=== PATIENT | male | born 1970 | race American Indian/Alaskan Native ===

== ENCOUNTER 2016-11-26 10:58 | Observation (INO) | payer SELFPAY ==
[2016-11-26 10:58] VITALS: BMI 37.1
[2016-11-26 12:09] LABS: BASO # 0.1 K/uL (0.0-0.2); BASO % 1.9 % (0.0-2.0); EOS # 0.2 K/uL (0.0-0.7); EOS % 5.6 % (0.0-4.0); HEMATOCRIT 39.4 % (35.0-51.0); LYMPH # 1.4 K/uL (1.0-4.3); LYMPH % 31.7 % (20.0-40.0); MEAN CORPUSCULAR HEMOGLOBIN 19.8 pg (27.0-31.0); MEAN CORPUSCULAR HGB CONC 31.4 g/dL (33.0-37.0); MEAN PLATELET VOLUME 10.9 fl (7.2-11.7); MONO # 0.4 K/uL (0.0-0.8); MONO % 8.5 % (0.0-10.0); NEUT # 2.3 K/uL (1.8-7.0); NEUT % 52.3 % (50.0-75.0); NRBC % 0.3 % (0.0-0.0); RED CELL DISTRIBUTION WIDTH 15.8 % (11.5-14.5); WHITE BLOOD COUNT 4.4 K/uL (4.8-10.8)
[2016-11-26 12:15] LABS: PARTIAL THROMBOPLASTIN TIME 30.9 Seconds (25.6-37.1)
--- NOTE | 2016-11-26 12:32 | ED PDOC ---
HPI: Chest Pain Time Seen by Provider: 11/26/16 11:16 Chief Complaint (Nursing): Chest Pain Chief Complaint (Provider): Chest pain History Per: Patient History/Exam Limitations: no limitations Onset/Duration Of Symptoms: Other (week) Additional Complaint(s): Patient is a 46 y/o male with a past medical history of hypertension, diabetes, and obesity, presenting to the emergency department for intermittent left sided chest pain radiating to the left shoulder x1 week. Denies dizziness, shortness of breath, syncope, or other complaints. Of note, patient was referred to the emergency department by PCP Dr. Cuba. Past Medical History Reviewed: Historical Data, Nursing Documentation, Vital Signs Vital Signs: Last Vital Signs Temp 98.2 F 11/27/16 08:53 Pulse 72 11/27/16 09:48 Resp 18 11/27/16 07:55 BP 142/87 11/27/16 09:48 Pulse Ox 96 11/27/16 07:55 - Medical History PMH: Diabetes, HTN, Sleep Apnea Denies: Chronic Kidney Disease - Surgical History Surgical History: No Surg Hx - Family History Family History: States: Unknown Family Hx - Social History Current smoker - smoking cessation education provided: No Ex-Smoker (has not smoked in the last 12 months): No Alcohol: None Drugs: Denies - Home Medications Home Medications: Ambulatory Orders Medication Instructions Recorded GlipiZIDE [Glucotrol] 10 mg PO BID #60 tab 06/22/15 Aspirin [Aspirin Chewable] 81 mg PO DAILY #30 11/27/16 Metoprolol Tartrate [Lopressor] 50 mg PO DAILY #30 tab 11/27/16 Simvastatin [Zocor] 20 mg PO DAILY #30 tablet 11/27/16 - Allergies Allergies/Adverse Reactions: Allergies Allergy/AdvReac Type Severity Reaction Status Date / Time No Known Allergies Allergy Verified 06/20/15 00:26 Review of Systems ROS Statement: Except As Marked, All Systems Reviewed And Found Negative Cardiovascular: Positive for: Chest Pain (left-sided, intermittent, radiating to left shoulder) Respiratory: Negative for: Shortness of Breath Musculoskeletal: Positive for: Shoulder Pain (left) Neurological: Negative for: Headache, Dizziness, Other (syncope) Physical Exam - Reviewed Nursing Documentation Reviewed: Yes Vital Signs Reviewed: Yes - Physical Exam Appears: Positive for: Non-toxic, No Acute Distress Head Exam: Positive for: ATRAUMATIC, NORMAL INSPECTION, NORMOCEPHALIC Skin: Positive for: Normal Color, Warm, Dry Eye Exam: Positive for: Normal appearance Neck: Positive for: Normal, Painless ROM, Supple Cardiovascular/Chest: Positive for: Regular Rate, Rhythm. Negative for: Murmur Respiratory: Positive for: Normal Breath Sounds. Negative for: Accessory Muscle Use, Respiratory Distress Gastrointestinal/Abdominal: Positive for: Normal Exam, Soft. Negative for: Tenderness Extremity: Positive for: Normal ROM. Negative for: Pedal Edema Neurologic/Psych: Positive for: Alert, Oriented (x3) - Laboratory Results Result Diagrams: 11/26/16 11:58 11/26/16 11:58 - ECG ECG: Positive for: Interpreted By Me ECG Rhythm: Positive for: Normal QRS, Normal ST Segment, Sinus Rhythm. Negative for: ST/T Changes Rate: 70 O2 Sat by Pulse Oximetry: 100 (RA) Pulse Ox Interpretation: Normal Medical Decision Making Medical Decision Making: Time: 11:38 Initial impression: Chest pain Initial plan: Labs EKG Chest X-ray Lopressor 25 mg PO Nitrostat 04. Mg SL Reevaluation Plan is to provide workup for acute coronary artery syndrome given patient's risk factors of high blood pressure, diabetes, and obesity. 12:30 Chest X-Ray reviewed. Findings noted as follows: FINDINGS: LUNGS: No active pulmonary disease. PLEURA: No significant pleural effusion identified. No pneumothorax apparent. CARDIOVASCULAR: No radiographic findings to suggest acute or significant cardiovascular disease. OSSEOUS STRUCTURES: No significant abnormalities. VISUALIZED UPPER ABDOMEN: Normal. OTHER FINDINGS: None. IMPRESSION: No active disease. No significant interval change compared to the prior examination(s). given risk factors of obesity, DM, HTN, will admit Obs Dr Cuba for r/o ACS. ASA, metoprolol initiated. Scribe Attestation: Documented by Tressa Silva, acting as a scribe for Jamil Chang DO. Provider Scribe Attestation: All medical record entries made by the Scribe were at my direction and personally dictated by me. I have reviewed the chart and agree that the record accurately reflects my personal performance of the history, physical exam, medical decision making, and the department course for this patient. I have also personally directed, reviewed, and agree with the discharge instructions and disposition. Disposition - Clinical Impression Clinical Impression: Acute chest pain - Patient ED Disposition Is Patient to be Admitted: Yes Counseled Patient/Family Regarding: Studies Performed, Diagnosis, Need For Followup - Disposition Disposition Time: 13:15 Condition: GOOD - Pt Status Changed To: Hospital Disposition Of: Observation
--- NOTE | 2016-11-26 12:32 | RAD ---
HISTORY: chest pain/ r/o infiltrate COMPARISON: 06/20/2015. TECHNIQUE: Chest PA and lateral FINDINGS: LUNGS: No active pulmonary disease. PLEURA: No significant pleural effusion identified. No pneumothorax apparent. CARDIOVASCULAR: No radiographic findings to suggest acute or significant cardiovascular disease. OSSEOUS STRUCTURES: No significant abnormalities. VISUALIZED UPPER ABDOMEN: Normal. OTHER FINDINGS: None. IMPRESSION: No active disease. No significant interval change compared to the prior examination(s).
[2016-11-26 12:51] LABS: GLUCOSE,RANDOM 250 mg/dL (75-110)
[2016-11-26 12:52] LABS: ALB/GLOB RATIO 0.9 (1.0-2.1); ALT/SGPT 35 U/L (21-72); AST/SGOT 45 U/L (17-59); BLOOD UREA NITROGEN 14 mg/dl (9-20); CALCIUM 8.7 mg/dL (8.4-10.2); CARBON DIOXIDE 24 mmol/L (22-30); CHLORIDE 100 mmol/L (98-107); GFR AFRICAN-AMERICAN > 60; POTASSIUM 4.7 MMOL/L (3.6-5.0); SODIUM 135 mmol/l (132-148); TOTAL PROTEIN 8.1 G/DL (6.3-8.2)
[2016-11-26 12:53] LABS: ALKALINE PHOSPHATASE 54 U/L (38-126)
[2016-11-27 07:20] LABS: CHOLESTEROL 207 mg/dL (0-199)
[2016-11-27 07:55] VITALS: RESP 18; TEMP 98.2
--- NOTE | 2016-11-27 08:36 | CARD ---
APPROVED REPORT EKG Measurement Heart [id number] <Conclusion> Normal sinus rhythm Nonspecific T wave abnormality Abnormal ECG
[2016-11-27] MEDS ORDERED: Enoxaparin 40 mg Syringe SC SCH (09:00)
--- NOTE | 2016-11-27 09:00 | CP.PCM.DIS ---
Provider - Provider Date of Admission: 11/26/16 14:15 Attending physician: Kojo Aparicio MD Time Spent in preparation of Discharge (in minutes): 30 Diagnosis - Discharge Diagnosis (1) Hyperlipidemia Status: Acute (2) Chest pain Status: Acute (3) Diabetes 1.5, managed as type 2 Status: Acute (4) Hypertension Status: Acute Hospital Course - Lab Results Lab Results: Most Recent Lab Values WBC 4.4 K/uL (4.8-10.8) L 11/26/16 11:58 RBC 6.25 Mil/uL (4.40-5.90) H 11/26/16 11:58 Hgb 12.4 g/dL (12.0-18.0) 11/26/16 11:58 Hct 39.4 % (35.0-51.0) 11/26/16 11:58 MCV 63.0 fl (80.0-94.0) L 11/26/16 11:58 MCH 19.8 pg (27.0-31.0) L 11/26/16 11:58 MCHC 31.4 g/dL (33.0-37.0) L 11/26/16 11:58 RDW 15.8 % (11.5-14.5) H 11/26/16 11:58 Plt Count 210 K/uL (130-400) 11/26/16 11:58 MPV 10.9 fl (7.2-11.7) 11/26/16 11:58 Neut % (Auto) 52.3 % (50.0-75.0) 11/26/16 11:58 Lymph % (Auto) 31.7 % (20.0-40.0) 11/26/16 11:58 [place] % (Auto) 8.5 % (0.0-10.0) 11/26/16 11:58 Eos % (Auto) 5.6 % (0.0-4.0) H 11/26/16 11:58 Baso % (Auto) 1.9 % (0.0-2.0) 11/26/16 11:58 Neut # 2.3 K/uL (1.8-7.0) 11/26/16 11:58 Lymph # 1.4 K/uL (1.0-4.3) 11/26/16 11:58 [place] # 0.4 K/uL (0.0-0.8) 11/26/16 11:58 Eos # 0.2 K/uL (0.0-0.7) 11/26/16 11:58 Baso # 0.1 K/uL (0.0-0.2) 11/26/16 11:58 PT 11.7 Seconds (9.8-13.1) 11/26/16 11:58 INR 1.1 (0.9-1.2) 11/26/16 11:58 APTT 30.9 Seconds (25.6-37.1) 11/26/16 11:58 Sodium 135 mmol/l (132-148) 11/26/16 11:58 Potassium 4.7 MMOL/L (3.6-5.0) 11/26/16 11:58 Chloride 100 mmol/L (98-107) 11/26/16 11:58 Carbon Dioxide 24 mmol/L (22-30) 11/26/16 11:58 Anion Gap 16 (10-20) 11/26/16 11:58 BUN 14 mg/dl (9-20) 11/26/16 11:58 Creatinine 1.0 mg/dL (0.8-1.5) 11/26/16 11:58 Est GFR ( Amer) > 60 11/26/16 11:58 Est GFR (Non-Af Amer) > 60 11/26/16 11:58 POC Glucose (mg/dL) 181 mg/dL (65-110) H 11/27/16 05:05 Random Glucose 250 mg/dL (75-110) H 11/26/16 11:58 Calcium 8.7 mg/dL (8.4-10.2) 11/26/16 11:58 Total Bilirubin 1.0 mg/dl (0.2-1.3) 11/26/16 11:58 AST 45 U/L (17-59) 11/26/16 11:58 ALT 35 U/L (21-72) 11/26/16 11:58 Alkaline Phosphatase 54 U/L (38-126) 11/26/16 11:58 Troponin I < 0.0120 ng/mL (0.00-0.120) 11/26/16 20:35 NT-Pro-B Natriuret Pep 18.8 pg/ml (0-450) 11/26/16 11:58 Total Protein 8.1 G/DL (6.3-8.2) 11/26/16 11:58 Albumin 3.9 g/dL (3.5-5.0) 11/26/16 11:58 Globulin 4.2 gm/dL (2.2-3.9) H 11/26/16 11:58 Albumin/Globulin Ratio 0.9 (1.0-2.1) L 11/26/16 11:58 Triglycerides 251 mg/DL (0-149) H 11/27/16 06:00 Cholesterol 207 mg/dL (0-199) H 11/27/16 06:00 LDL Cholesterol Direct 132 mg/dL (0-129) H 11/27/16 06:00 HDL Cholesterol 26 MG/DL (30-70) L 11/27/16 06:00 Urine Opiates Screen Negative (NEGATIVE) 11/26/16 13:40 Urine Methadone Screen Negative (NEGATIVE) 11/26/16 13:40 Ur Barbiturates Screen Negative (NEGATIVE) 11/26/16 13:40 Ur Phencyclidine Scrn Negative (NEGATIVE) 11/26/16 13:40 Ur Amphetamines Screen Negative (NEGATIVE) 11/26/16 13:40 U Benzodiazepines Scrn Negative (NEGATIVE) 11/26/16 13:40 U Oth Cocaine Metabols Negative (NEGATIVE) 11/26/16 13:40 U Cannabinoids Screen Negative (NEGATIVE) 11/26/16 13:40 - Hospital Course Hospital Course: CHEST PAIN RESOLVED Discharge Exam - Head Exam Head Exam: ATRAUMATIC, NORMAL INSPECTION, NORMOCEPHALIC - Eye Exam Eye Exam: EOMI, Normal appearance, PERRL Pupil Exam: NORMAL ACCOMODATION, PERRL - GI/Abdominal Exam GI & Abdominal Exam: Normal Bowel Sounds - Rectal Exam Rectal Exam: NORMAL INSPECTION - Neurological Exam Neurological exam: Alert, CN II-XII Intact, Normal Gait, Oriented x3, Reflexes Normal - Psychiatric Exam Psychiatric exam: Normal Affect, Normal Mood - Skin Skin Exam: Dry, Intact, Normal Color, Warm Discharge Plan - Follow Up Plan Condition: GOOD Disposition: HOME/ ROUTINE Patient education suggested?: Yes Additional Instructions: DISCHARGE TODAY FOLLOW UP WITH DR APARICIO IN 1 WEEK
[2016-11-27 09:49] VITALS: BP 142/87
--- NOTE | 2016-11-27 11:32 | CP.PCM.CON ---
History of Present Illness - History of Present Illness History of Present Illness: I was asked to see patient by Dr Cuba. Patient is a 46 year old male with PMH HTN, DM who presents with chest pain. Symptoms began a few days ago, and are located in the left side of the chest. He was sent in by Dr. Cuba. Review of Systems - Constitutional Constitutional: absent: As Per HPI, Anorexia, Chills, Daytime Sleepiness, Excessive Sweating, Fatigue, Fever, Frequent Falls, Headache, Increased Appetite , Lethargy, Malaise, Night Sweats, Snoring, Sleep Apnea, Weight Gain, Weight Loss, Weakness, Other - EENT Eyes: absent: As Per HPI, Blind Spots, Blurred Vision, Change in Vision, Decreased Night Vision, Diplopia, Discharge, Dry Eye, Exophthalmos, Floaters, Irritation, Itchy Eyes, Loss of Peripheral Vision, Pain, Photophobia, Requires Corrective Lenses, Sees Flashes, Spots in Vision, Tunnel Vision, Other Visual Disturbances, Loss of Vision, Other Ears: absent: As Per HPI, Decreased Hearing, Ear Discharge, Ear Pain, Tinnitus, Abnormal Hearing, Disequilibrium, Dizziness, Other Nose/Mouth/Throat: absent: As Per HPI, Epistaxis, Nasal Congestion, Nasal Discharge, Nasal Obstruction, Nasal Trauma, Nose Pain, Post Nasal Drip, Sinus Pain, Sinus Pressure, Bleeding Gums, Change in Voice, Dental Pain, Dry Mouth, Dysphagia, Halitosis, Hoarsness, Lip Swelling, Mouth Lesions, Mouth Pain, Odynophagia, Sore Throat, Throat Swelling, Tongue Swelling, Facial Pain, Neck Pain, Neck Mass, Other - Respiratory Respiratory: absent: As Per HPI, Cough, Dyspnea, Hemoptysis, Dyspnea on Exertion , Wheezing, Snoring, Stridor, Pain on Inspiration, Chest Congestion, Excessive Mucous Production, Change in Mucous Color, Pain with Coughing, Other - Gastrointestinal Gastrointestinal: absent: As Per HPI, Abdominal Pain, Belching, Bloating, Change in Bowel Habits, Change in Stool Character, Coffee Ground Emesis, Constipation, Cramping, Diarrhea, Dyspepsia, Dysphagia, Early Satiety, Excessive Flatus, Fecal Incontinence, Heartburn, Hematemesis, Hematochezia, Loose Stools, Melena, Nausea, Odynophagia, Temesmus, Vomiting, Other - Musculoskeletal Musculoskeletal: absent: As Per HPI, Abnormal Gait, Arthralgias, Atrophy, Back Pain, Deformity, Joint Swelling, Limited Range of Motion, Loss of Height, Muscle Cramps, Muscle Weakness, Myalgias, Neck Pain, Numbness, Radiating Pain into Limb, Stiffness, Tingling, Other - Integumentary Integumentary: absent: As Per HPI, Acne, Alopecia, Bleeding Lesions, Change in Hair, Change in Nails, Change in Pigmentation, Changing Lesions, Dry Skin, Erythema, Furuncle, Hirsutism, Lesions, New Lesions, Non-Healing Lesions, Photosensitivity, Pruritus, Rash, Skin Pain, Skin Ulcer, Sores, Striae, Swelling , Unusual Bruising, Wounds, Jaundice, Other - Neurological Neurological: absent: As Per HPI, Abnormal Gait, Abnormal Hearing, Abnormal Movements, Abnormal Speech, Behavioral Changes, Burning Sensations, Confusion, Convulsions, Disequilibrium, Dizziness, Numbness, Focal Weakness, Frequent Falls , Headaches, Lack of Coordination, Loss of Vision, Memory Loss, Paresthesias, Radicular Pain, Restless Legs, Sensory Deficit, Syncope, Tingling, Tremor, Vertigo, Weakness, Other Visual Disturbances, Other - Psychiatric Psychiatric: absent: As Per HPI, Abnormal Sleep Pattern, Anhedonia, Anxiety, Auditory Hallucinations, Behavioral Changes, Change in Appetite, Change in Libido, Confusion, Depression, Difficulty Concentrating, Hallucinations, Homicidal Ideation, Hopelessness, Irritability, Memory Loss, Mood Swings, Panic Attacks, Paranoia, Suicidal Ideation, Visual Hallucinations, Tactile Hallucinations, Other - Hematologic/Lymphatic Hematologic: absent: As Per HPI, Easy Bleeding, Easy Bruising, Lymphadenopathy, Other Past Patient History - Past Medical History & Family History Past Medical History?: Yes - Past Social History Smoking Status: Never Smoked - CARDIAC Hx Hypertension: Yes - PULMONARY Hx Sleep Apnea: Yes - NEUROLOGICAL Hx Neurological Disorder: No - HEENT Hx HEENT Problems: No - RENAL Hx Chronic Kidney Disease: No - ENDOCRINE/METABOLIC Hx Endocrine Disorders: Yes (DM) Hx Diabetes Mellitus Type 2: Yes - HEMATOLOGICAL/ONCOLOGICAL Hx Blood Disorders: No Hx AIDS: No Hx Human Immunodeficiency Virus (HIV): No - INTEGUMENTARY Hx Dermatological Problems: No - MUSCULOSKELETAL/RHEUMATOLOGICAL Hx Musculoskeletal Disorders: No Hx Falls: No - GASTROINTESTINAL Hx Gastrointestinal Disorders: No - GENITOURINARY/GYNECOLOGICAL Hx Genitourinary Disorders: No - PSYCHIATRIC Hx Psychophysiologic Disorder: No Hx Substance Use: No - SURGICAL HISTORY Hx Surgeries: No - ANESTHESIA Hx Anesthesia: No Hx Anesthesia Reactions: No Meds Home Medications: Home Medication List Medication Instructions Recorded Confirmed Type Aspirin [Aspirin Chewable] 81 mg PO DAILY #30 11/27/16 Rx Metoprolol Tartrate [Lopressor] 50 mg PO DAILY #30 tab 11/27/16 Rx Simvastatin [Zocor] 20 mg PO DAILY #30 tablet 11/27/16 Rx Allergies/Adverse Reactions: Allergies Allergy/AdvReac Type Severity Reaction Status Date / Time No Known Allergies Allergy Verified 06/20/15 00:26 - Medications Medications: Current Medications Aspirin (Aspirin Chewable) 81 mg PO DAILY [facility] Last Admin: 11/27/16 09:48 Dose: 81 mg Enoxaparin Sodium (Lovenox) 40 mg SC DAILY [facility] PRN Reason: Protocol Last Admin: 11/27/16 09:49 Dose: 40 mg Metoprolol Tartrate (Lopressor) 50 mg PO DAILY [facility] Last Admin: 11/27/16 09:48 Dose: 50 mg Physical Exam - Constitutional Appears: Non-toxic - Head Exam Head Exam: NORMAL INSPECTION - Eye Exam Eye Exam: Normal appearance - ENT Exam ENT Exam: Mucous Membranes Moist - Neck Exam Neck exam: Positive for: Full Rom - Respiratory Exam Respiratory Exam: NORMAL BREATHING PATTERN - Cardiovascular Exam Cardiovascular Exam: REGULAR RHYTHM - GI/Abdominal Exam GI & Abdominal Exam: Normal Bowel Sounds - Rectal Exam Rectal Exam: Deferred - Extremities Exam Extremities exam: Negative for: pedal edema - Back Exam Back exam: NORMAL INSPECTION - Neurological Exam Neurological exam: Alert, Oriented x3 - Psychiatric Exam Psychiatric exam: Normal Affect - Skin Skin Exam: Normal Color Results - Vital Signs Recent Vital Signs: Last Vital Signs Temp 98.2 F 11/27/16 08:53 Pulse 72 11/27/16 09:48 Resp 18 11/27/16 07:55 BP 142/87 11/27/16 09:48 Pulse Ox 96 11/27/16 07:55 - Labs Result Diagrams: 11/26/16 11:58 11/26/16 11:58 Labs: Laboratory Results - last 24 hr 11/26/16 11/26/16 11/27/16 20:35 21:32 05:05 POC Glucose (mg/dL) 177 H 181 H Troponin I < 0.0120 Triglycerides Cholesterol LDL Cholesterol Direct HDL Cholesterol 11/27/16 06:00 POC Glucose (mg/dL) Troponin I < 0.0120 Triglycerides 251 H Cholesterol 207 H LDL Cholesterol Direct 132 H HDL Cholesterol 26 L - EKG Data EKG Interpreted by: Myself Assessment & Plan (1) Chest pain Assessment and Plan: patient has risk factors for CAD. will shcedule stress test/ If negative can d /c home Status: Acute (2) Hyperlipidemia Status: Acute (3) Hypertension Status: Acute
--- NOTE | 2016-11-27 16:53 | HP ---
HISTORY OF PRESENT ILLNESS: Mr. Rodrigez is a 46-year-old male who was admitted via the emergency room because of chest pain on and off for the past several days prior to presentation, who was originally seen in the office several days prior to this presentation and put on nitroglycerin sublingual tablet and aspirin and asked to come to the emergency room if chest pains reoccur. He indicates that pain is precordial radiating to the left arm and the neck for the past several days. He has not been too compliant with his medications. PAST MEDICAL HISTORY: He has a past medical history of hypertension, diabetes mellitus, was recently admitted to [facility], treated and discharged. FAMILY HISTORY: Non-revealing. SOCIAL HISTORY: He does not smoke or drink. REVIEW OF SYSTEMS: Essentially remarkable for recurrent chest pains. PHYSICAL EXAMINATION: GENERAL: The patient is alert and oriented, appears to be very comfortable this morning, in no apparent distress. VITAL SIGNS: Blood pressure 142/87, pulse of 54, respiratory rate 18. He is afebrile. O2 saturation is 96% on room air. SKIN: Shows fair turgor. HEENT: Pupils are equal and reactive to light and accommodation. Mouth shows fair hygiene. JVP flat. LUNGS: Clear. HEART: Regular. No murmurs or gallops. ABDOMEN: Soft. Nontender. No organomegaly. EXTREMITIES: Shows no edema or cyanosis. CENTRAL NERVOUS SYSTEM: Grossly intact. RECTAL AND GENITAL: Deferred. LABORATORY DATA: Reviewed including cardiac exams which are unremarkable. Lipid profiles, cholesterol of 207, triglyceride 251, LDL of 132, HDL 26, serum glucose 181. DIAGNOSTIC STUDIES: Chest x-ray, no acute cardiopulmonary pathology. EKG, regular sinus rhythm, nonspecific ST changes. Cardiac exam negative. Stress test already completed this morning, official report pending, but does not appear to show any pathology. IMPRESSION: 1. Chest pains, probably atypical. 2. Hypertension, poorly controlled due to noncompliance with medication. 3. Diabetes poorly control, due to noncompliance with medication. PLAN: To discharge the patient today and have him followup with Dr. Cuba and Dr. Ivy as an outpatient. He will be on aspirin, Lopressor, and glipizide. He is advised compliance to medications. Kojo Cuba MD [facility] # [id number]
--- NOTE | 2016-11-27 17:40 | CARD ---
APPROVED REPORT Protocol: AURA Test Type: Treadmill Stress Test Attending Physician: Dr. Smith Referring Physician: Dr. Cuba Technologist: Ni Garza Test Indications: chest pain Medications: Enalapril 10mg, Glipiziede 10mg Medical History: Hypertension, Diabetes, Obesity Target HR: 173 bpm Resting ECG: T wave inversion Resting Heart Rate: 83 bpm Resting Blood Pressure: 158/100mmHg submaximum (85%): 147 bpm TEST SUMMARY [id number]/100.0. [id number]/100.0. [id number].00:[id number]/100.0. [id number]-[id number]/100.0. EXERCISESTAGE 103:[id number]/100.0. EXERCISESTAGE 203:[id number]/90.0. EXERCISESTAGE 302:[id number]/90.0. [id number]/102.0. POST EXERCISE Reason for Termination: Fatigue Target HR: NoMax HR: 153 bpm89% of Maximum Predicted HR: 173 bpm Exercise duration: 3 Stage08:41 min:secExercise capacity: 10.1METs Max Blood Pressure: 200/100mmHg Blood Pressure response to exercise: resting hypertension - appropriate response Heart Rate response to exercise: appropriate Chest Pain: NononeAngina index: 0 Arrhythmia: Nonone ST Change: NononeDeviation: 0 mm INTERPRETATION Stress EKG Conclusion: This 46-year-old -[place] male underwent this study to rule out evidence of coronary artery disease. He had a history of hypertension which was poorly controlled. He denied any history of smoking. The patient had reported chest discomfort at rest and on arrival in the emergency room his electrocardiogram did not show any ischemic changes. He had 2 consultative normal troponin levels and an acute coronary syndrome had been ruled out. His resting electric cardiogram showed sinus rhythm with nonspecific ST changes. His resting blood pressure was 158/100 mmHg. His Cardec auscultation was unremarkable. On Aura protocol he was able to finish to minutes and 41 seconds of stage III effort when fatigue and shortness of breath forced an end to exercise. There was neither chest pain or ischemic electro-Cardiologic abnormality. The peak heart rate achieved was 153 bpm which corresponded to 86% of his predicted max. His blood pressure wagner rapidly reaching 190/90 mmHg at peak effort. There were no arrhythmias. The peak workload achieved was 10.1 MET S. Upon termination of exercise, his heart rate and blood pressure recovery were normal. The patient left the stress lab symptom free and hemodynamically stable. IMPRESSION: The patient had an average effort tolerance. His resting blood pressure was elevated. His blood pressure response to exercise was appropriate. At 86% of his predicted maximum heart rate, no evidence of myocardial ischemia was detected.
[2016-11-28 13:30] VITALS: PULSE 70; O2SAT 100
== END 2016-11-27 11:45 | disposition home or self-care (01) ==
LOC: H.ER 10:58 → H.ERHOLD 14:15 → H.TEL 20:26
PROVIDERS: ADMIT Internal Medicine Pulmonary Disease; ATTEND Internal Medicine Pulmonary Disease
DX: R07.89 Other chest pain (principal); E11.9 Type 2 diabetes mellitus without complications; I10 Essential (primary) hypertension; E66.9 Obesity, unspecified; Z68.37 Body mass index [BMI] 37.0-37.9, adult; G47.30 Sleep apnea, unspecified; Z91.14 Patient's other noncompliance with medication regimen; E78.5 Hyperlipidemia, unspecified
CPT/HCPCS: 36415; 71020; 80053; 80061; 82948; 83880; 84484; 85025; 85610; 85730; 93005; 93017; 99285; G0378; G0480; J1650